=== PATIENT | male | born 1965 | race Hispanic/Latino ===

== ENCOUNTER 2016-08-29 13:08 | Observation (INO) | payer BC ==
[2016-08-29] MEDS ORDERED: Sodium Chloride 0.9% 1,000 ML IV STA (14:00)
[2016-08-29 14:40] LABS: BASO # 0.1 K/uL (0.0-0.2); BASO % 0.3 % (0.0-2.0); EOS # 0.1 K/uL (0.0-0.7); EOS % 0.4 % (0.0-4.0); HEMATOCRIT 47.2 % (35.0-51.0); LYMPH % 5.9 % (20.0-40.0); MEAN CELL VOLUME 81.1 fl (80.0-94.0); MEAN CORPUSCULAR HEMOGLOBIN 26.4 pg (27.0-31.0); MEAN CORPUSCULAR HGB CONC 32.6 g/dL (33.0-37.0); MEAN PLATELET VOLUME 7.2 fl (7.2-11.7); MONO # 0.7 K/uL (0.0-0.8); MONO % 4.4 % (0.0-10.0); NEUT # 14.3 K/uL (1.8-7.0); PLATELET COUNT 192 K/uL (130-400); RED CELL DISTRIBUTION WIDTH 13.3 % (11.5-14.5)
[2016-08-29 14:41] LABS: ALB/GLOB RATIO 1.2 (1.0-2.1); ALKALINE PHOSPHATASE 55 U/L (38-126); ALT/SGPT 66 U/L (21-72); AST/SGOT 43 U/L (17-59); BILIRUBIN,TOTAL 1.1 mg/dl (0.2-1.3); BLOOD UREA NITROGEN 17 mg/dl (9-20); CALCIUM 9.2 mg/dL (8.4-10.2); CARBON DIOXIDE 21 mmol/L (22-30); CHLORIDE 106 mmol/L (98-107); GFR AFRICAN-AMERICAN > 60; GLUCOSE,RANDOM 125 mg/dL (75-110); LIPASE 322 U/L (23-300); POTASSIUM 4.7 MMOL/L (3.6-5.0); SODIUM 140 mmol/l (132-148); TOTAL PROTEIN 7.9 G/DL (6.3-8.2)
--- NOTE | 2016-08-29 15:07 | ED PDOC ---
HPI: General Adult Time Seen by Provider: 08/29/16 13:41 Chief Complaint (Nursing): Abdominal Pain History Per: Patient History/Exam Limitations: no limitations Additional Complaint(s): 51-year-old male, presents to the emergency department with complaints of abdominal pain. Patient states he has been experiencing epigastric abdominal pain that started at 01:30 this morning. Pain is persistent in nature, and non- radiating. Associated symptoms include nausea, non-bloody/non-bilious vomiting ( x12) and non-bloody/watery diarrhea (x35), resulting in him coming to the ED for evaluation. No back pain, dizziness, incontinence, headaches, fevers, recent travel, chills, shortness of breath or chest pain. No other complaints at this time. Past Medical History Reviewed: Historical Data, Nursing Documentation, Vital Signs Vital Signs: Last Vital Signs Temp 100.0 F H 08/29/16 16:15 Pulse 81 08/29/16 16:15 Resp 16 08/29/16 16:15 BP 144/70 08/29/16 16:15 Pulse Ox 95 08/29/16 16:15 - Medical History PMH: Pancreatitis - Family History Family History: States: Unknown Family Hx - Home Medications Home Medications: Ambulatory Orders Medication Instructions Recorded No Known Home Med 08/29/16 - Allergies Allergies/Adverse Reactions: Allergies Allergy/AdvReac Type Severity Reaction Status Date / Time iodine Allergy RASH Verified 08/29/16 13:34 shellfish derived Allergy RASH Verified 08/29/16 13:34 Review of Systems ROS Statement: Except As Marked, All Systems Reviewed And Found Negative Constitutional: Negative for: Fever, Chills Cardiovascular: Negative for: Chest Pain, Palpitations Gastrointestinal: Positive for: Abdominal Pain, Diarrhea. Negative for: Nausea , Vomiting, Hematochezia Musculoskeletal: Negative for: Back Pain Skin: Negative for: Rash Neurological: Negative for: Weakness, Numbness, Headache, Dizziness Physical Exam - Reviewed Nursing Documentation Reviewed: Yes Vital Signs Reviewed: Yes - Physical Exam Appears: Positive for: Non-toxic, No Acute Distress Head Exam: Positive for: ATRAUMATIC, NORMOCEPHALIC Skin: Positive for: Warm, Dry. Negative for: Rash Eye Exam: Positive for: Normal appearance Neck: Positive for: Painless ROM Cardiovascular/Chest: Positive for: Regular Rate, Rhythm Respiratory: Positive for: Normal Breath Sounds. Negative for: Accessory Muscle Use Gastrointestinal/Abdominal: Positive for: Bowel Sounds (Hypoactive), Soft. Negative for: Tenderness Extremity: Positive for: Normal ROM Neurologic/Psych: Positive for: Alert, Oriented - Laboratory Results Result Diagrams: 08/29/16 14:17 08/29/16 14:17 - ECG O2 Sat by Pulse Oximetry: 99 Medical Decision Making Medical Decision Making: Plan * CT Abd/Pel * EKG * CMP, Lipase * CBC * IVF * Stool Culture * Reassess and Disposition * Pt comfortable. Discussed with Dr. Sullivan. Scribe Attestation: Documented by Tianna Eason, acting as a scribe for NATHALIA Fisher. Provider Scribe Attestation: All medical record entries made by the Scribe were at my direction and personally dictated by me. I have reviewed the chart and agree that the record accurately reflects my personal performance of the history, physical exam, medical decision making, and the department course for this patient. I have also personally directed, reviewed, and agree with the discharge instructions and disposition. Disposition - Clinical Impression Clinical Impression: Abdominal pain - Patient ED Disposition Is Patient to be Admitted: Yes - Disposition Disposition Time: 18:59 Condition: STABLE - Pt Status Changed To: Hospital Disposition Of: Observation - Admit Certification Admit to Inpatient:: M/S - POA Present On Arrival: None
--- NOTE | 2016-08-29 16:07 | CT ---
PROCEDURE: CT Abdomen and Pelvis without intravenous contrast HISTORY: epigastric pain COMPARISON: 06/05/2015 TECHNIQUE: Without contrast.. Contrast Dose: 0 Radiation dose: Total exam DLP = 1043.99 mGy-cm. This CT exam was performed using one or more of the following dose reduction techniques: Automated exposure control, adjustment of the mA and/or kV according to patient size, and/or use of iterative reconstruction technique. FINDINGS: LOWER THORAX: Unremarkable. LIVER: Mild hepatomegaly. The liver measures 20 cm craniocaudal. Smooth contour. No mass. No biliary ductal dilatation. GALLBLADDER AND BILE DUCTS: No calcified gallstones. No mural thickening. No pericholecystic fluid. PANCREAS: Unremarkable. No gross lesion or ductal dilatation. No peripancreatic fluid. SPLEEN: Unremarkable. ADRENALS: Unremarkable. No mass. KIDNEYS AND URETERS: Unremarkable. No hydronephrosis. No solid mass. No urinary calculus. VASCULATURE: Unremarkable. No aortic aneurysmNo urinary or ureteral. BOWEL: Sigmoid diverticulosis without evidence of diverticulitis. Scattered diverticulae elsewhere. No bowel obstruction. No other abnormal bowel loops. APPENDIX: Unremarkable. Normal appendix. PERITONEUM: No gross abnormality. LYMPH NODES: Unremarkable. No enlarged lymph nodes. BLADDER: Poorly distended. REPRODUCTIVE: Unremarkable prostate BONES: Minimal anterior wedge compression deformity of the T11 vertebra unchanged from examination of 06/05/2015. OTHER FINDINGS: None. IMPRESSION: No acute abnormality. Mild hepatomegaly. No evidence of pancreatitis. Sigmoid diverticulosis. No evidence of diverticulitis.
[2016-08-29 16:14] LABS: BASOPHIL 1 % (0-2); EOSINOPHIL 2 % (0-7); NEUTROPHIL 87 % (42-75); TOTAL CELLS COUNTED 100
[2016-08-29] MEDS ORDERED: Dextrose 5%/0.9% NS 1,000 ML IV SCH (17:00)
--- NOTE | 2016-08-29 17:41 | RAD ---
HISTORY: admission COMPARISON: Chest x-ray performed 10/28/15 TECHNIQUE: Chest PA and lateral FINDINGS: Examination limited by habitus. LUNGS: No focal consolidation. Please note that chest x-ray has limited sensitivity for the detection of pulmonary masses. PLEURA: No significant pleural effusion identified. No definite pneumothorax . CARDIOVASCULAR: The cardiomediastinal silhouette appears within normal limits of size. OSSEOUS STRUCTURES: Degenerative changes of the spine. VISUALIZED UPPER ABDOMEN: Mild elevation of the right hemidiaphragm. OTHER FINDINGS: None. IMPRESSION: No focal consolidation, significant pleural effusion, or definite pneumothorax identified.
--- NOTE | 2016-08-29 18:41 | CP.PCM.HP ---
History of Present Illness - History of Present Illness History of Present Illness: %1 old gentleman presented in ER with epigastric pain, abdominal pain and diarrhea, general malaise, N/V. Hx of previous pancreatitis. The WBC elevated and fever. Present on Admission - Present on Admission Any Indicators Present on Admission: No Review of Systems - Constitutional Constitutional: As Per HPI - EENT Eyes: As Per HPI Nose/Mouth/Throat: As Per HPI - Cardiovascular Cardiovascular: As Per HPI - Gastrointestinal Gastrointestinal: Abdominal Pain, Diarrhea, Nausea, Vomiting - Musculoskeletal Musculoskeletal: As Per HPI - Integumentary Integumentary: As Per HPI - Neurological Neurological: As Per HPI - Psychiatric Psychiatric: As Per HPI Past Patient History - Past Social History Smoking Status: Current Some Days Smoker - GASTROINTESTINAL Hx Pancreatitis: Yes - PSYCHIATRIC Hx Substance Use: No - SURGICAL HISTORY Hx Surgeries: No Meds Allergies/Adverse Reactions: Allergies Allergy/AdvReac Type Severity Reaction Status Date / Time iodine Allergy RASH Verified 08/29/16 13:34 shellfish derived Allergy RASH Verified 08/29/16 13:34 Physical Exam - Constitutional Appears: Non-toxic - Head Exam Head Exam: ATRAUMATIC, NORMAL INSPECTION, NORMOCEPHALIC - Eye Exam Eye Exam: EOMI, Normal appearance, PERRL Pupil Exam: NORMAL ACCOMODATION - ENT Exam ENT Exam: Mucous Membranes Moist, Normal Exam - Neck Exam Neck exam: Positive for: Normal Inspection - Respiratory Exam Respiratory Exam: Clear to Auscultation Bilateral - Cardiovascular Exam Cardiovascular Exam: REGULAR RHYTHM, +S1, +S2 - GI/Abdominal Exam Additional comments: no tender no rebound - Extremities Exam Extremities exam: Positive for: normal inspection Results - Vital Signs Recent Vital Signs: Last Vital Signs Temp 100.0 F H 08/29/16 16:15 Pulse 81 08/29/16 16:15 Resp 16 08/29/16 16:15 BP 144/70 08/29/16 16:15 Pulse Ox 95 08/29/16 16:15 - Labs Result Diagrams: 08/29/16 14:17 08/29/16 14:17 Assessment & Plan (1) Abdominal pain Status: Acute (2) Pancreatitis Status: Acute (3) Sepsis Status: Suspected - Assessment and Plan (Free Text) Plan: As per orders
--- NOTE | 2016-08-29 19:44 | CON ---
DATE: 08/29/2016 The patient is a 51-year-old man who was admitted via the ER with severe epigastric pain, abdominal p ain, and diarrhea. The patient states that he went to eat scrambled eggs at a diner in [place], and within 2 hours developed fever, chills, and nonstopping diarrhea. Had a bout of diarrhea when I was in the room with him, and it was markedly watery. The patient has a past medical history of pancreatitis. He is alert, cooperative, and oriented to time and place. NECK: Supple. LUNGS: Some crackles at both bases. HEART: Regular sinus rhythm. ABDOMEN: Distended, hyperactive bowel sounds, and has some tenderness in the epigastric and right lo wer quadrant, but nothing too severe. EXTREMITIES: No CCE. LABORATORIES: Show a WBC of 16, hemoglobin 15.4, platelet count 192, with 89 polys, and 5.9 lymphs. No bands. Chemistries show a creatinine of 0.8, GFR greater than 60, random glucose 125, bilirubin 1.1. AST 43, ALT 66, and his lipase is 33 22. CHEST X-RAY: No focal consolidation. Significant pleural effusion or definite pneumothorax is ident ified. Abdominal pelvic CT: No acute abnormality, mild hepatomegaly. No evidence of pancreatitis. Sigmoid diverticulosis, and no evidence of diverticulitis At this point, blood and urine cultures have been ordered. Stool cultures ordered. Stool for C. dif ficile has also been ordered. I have started him on doxycycline 100 mg IV piggyback q. 12, and Flagyl 500 mg IV piggyback q. 8, and also Bacid was ordered. IMPRESSION: Rule out gastroenteritis secondary to food poisoning, rule out routine viral gastroenter itis, pancreatitis. Will await cultures and decide if further treatment. Mich Ferro MD cc: 61 TT: 08/29/2016 19:43:46 Confirmation # [id number] Dictation # [id number] jose
--- NOTE | 2016-08-29 20:05 | CARD ---
APPROVED REPORT EKG Measurement Heart [id number] <Conclusion> Normal sinus rhythm Normal ECG
[2016-08-29 20:28] LABS: PROSTATE SPECIFIC ANTIGEN 0.203 ng/ML (0.00-4.0)
[2016-08-29] MEDS: Enoxaparin 40 mg Syringe SC SCH (20:41)
[2016-08-30] MEDS: metroNIDAZOLE 500mg/100ml NS 100 ML IVPB SCH ×2 (01:19→10:48)
[2016-08-30 07:34] LABS: BASO % 0.4 % (0.0-2.0); EOS # 0.2 K/uL (0.0-0.7); EOS % 2.2 % (0.0-4.0); HEMATOCRIT 41.5 % (35.0-51.0); LYMPH # 2.2 K/uL (1.0-4.3); LYMPH % 26.5 % (20.0-40.0); MEAN CELL VOLUME 80.9 fl (80.0-94.0); MEAN CORPUSCULAR HGB CONC 33.4 g/dL (33.0-37.0); MEAN PLATELET VOLUME 7.5 fl (7.2-11.7); MONO # 0.8 K/uL (0.0-0.8); MONO % 9.7 % (0.0-10.0); NEUT # 5.1 K/uL (1.8-7.0); NEUT % 61.2 % (50.0-75.0); NRBC % 0.1 % (0.0-0.0); RED CELL DISTRIBUTION WIDTH 13.4 % (11.5-14.5); WHITE BLOOD COUNT 8.3 K/uL (4.8-10.8)
[2016-08-30 07:39] LABS: RBC URINE 4 /hpf (0-3); URINE BILIRUBIN NEGATIVE (NEGATIVE); URINE BLOOD NEGATIVE (NEGATIVE); URINE COLOR YELLOW (YELLOW); URINE GLUCOSE (UA) NEG (Normal); URINE KETONE NEGATIVE (NEGATIVE); URINE LEUKOCYTE ESTERASE NEG Leu/uL (Negative); URINE PROTEIN 30 mg/dL (NEGATIVE); URINE UROBILINOGEN 0.2-1.0 mg/dL (0.2-1.0); WBC URINE < 1 /hpf (0-5)
[2016-08-30 07:43] VITALS: BP 122/68; PULSE 64; RESP 18; TEMP 98.6; O2SAT 96
[2016-08-30 07:51] LABS: ALB/GLOB RATIO 1.1 (1.0-2.1); ALKALINE PHOSPHATASE 44 U/L (38-126); ALT/SGPT 51 U/L (21-72); AMYLASE 79 U/L (30-110); AST/SGOT 32 U/L (17-59); BILIRUBIN,TOTAL 0.9 mg/dl (0.2-1.3); BLOOD UREA NITROGEN 14 mg/dl (9-20); CALCIUM 8.2 mg/dL (8.4-10.2); CARBON DIOXIDE 26 mmol/L (22-30); CHLORIDE 107 mmol/L (98-107); GFR AFRICAN-AMERICAN > 60; GLUCOSE,RANDOM 111 mg/dL (75-110); POTASSIUM 4.2 MMOL/L (3.6-5.0); SODIUM 143 mmol/l (132-148); TOTAL PROTEIN 6.4 G/DL (6.3-8.2)
[2016-08-30] MEDS: Enoxaparin 40 mg Syringe SC SCH (09:07)
[2016-08-30] MEDS ORDERED: Lactobacillus Acidophilus 500 MU Cap PO SCH (11:54)
--- NOTE | 2016-08-30 12:15 | CP.PCM.PN ---
Subjective - Date & Time of Evaluation Date of Evaluation: 08/30/16 Time of Evaluation: 12:14 - Subjective Subjective: Comfortable no abd pain no n/v no cp no diarrhea Objective - Vital Signs/Intake and Output Vital Signs (last 24 hours): Temp Pulse Resp BP Pulse Ox 98.6 F 64 18 122/68 96 08/30/16 09:00 08/30/16 07:42 08/30/16 07:42 08/30/16 07:42 08/30/16 07:42 - Medications Medications: Current Medications Acetaminophen (Tylenol 325mg Tab) 650 mg PO Q6 PRN PRN Reason: Fever >100.4 F Last Admin: 08/29/16 20:05 Dose: 650 mg Enoxaparin Sodium (Lovenox) 40 mg SC DAILY COUNT INCLUDES THE [facility] PRN Reason: Protocol Last Admin: 08/30/16 09:07 Dose: Not Given Dextrose/Sodium Chloride (Dextrose 5%/0.9% Ns 1000 Ml) 1,000 mls @ 85 mls/hr IV .[id number] COUNT INCLUDES THE [facility] Stop: 08/30/16 17:01 Ceftriaxone Sodium 1 gm/ (Sodium Chloride) 100 mls @ 100 mls/hr IVPB DAILY COUNT INCLUDES THE [facility] Last Admin: 08/30/16 09:07 Dose: 100 mls/hr Metronidazole (Flagyl 500mg/100ml Ns) 100 mls @ 100 mls/hr IVPB Q8 COUNT INCLUDES THE [facility] Last Admin: 08/30/16 10:48 Dose: 100 mls/hr Doxycycline Hyclate 100 mg/ (Sodium Chloride) 100 mls @ 100 mls/hr IVPB Q12 COUNT INCLUDES THE [facility] Last Admin: 08/29/16 21:53 Dose: 100 mls/hr Lactobacillus Acidophilus (Bacid Acidophilus) 1 cap PO BID COUNT INCLUDES THE [facility] Pantoprazole Sodium (Protonix Inj) 40 mg IVP DAILY COUNT INCLUDES THE [facility] Last Admin: 08/30/16 09:07 Dose: 40 mg - Labs Labs: 08/30/16 06:50 08/30/16 06:50 - Constitutional Appears: Well - Head Exam Head Exam: ATRAUMATIC, NORMAL INSPECTION, NORMOCEPHALIC - Eye Exam Eye Exam: Normal appearance - ENT Exam ENT Exam: Mucous Membranes Moist - Neck Exam Neck Exam: Full ROM - Respiratory Exam Respiratory Exam: Clear to Ausculation Bilateral - Cardiovascular Exam Cardiovascular Exam: REGULAR RHYTHM, +S1, +S2 - GI/Abdominal Exam GI & Abdominal Exam: Soft, Normal Bowel Sounds - Extremities Exam Extremities Exam: Normal Inspection - Neurological Exam Neurological Exam: Alert, Awake, CN II-XII Intact, Normal Gait, Oriented x3 - Psychiatric Exam Psychiatric exam: Normal Affect - Skin Skin Exam: Normal Color Assessment and Plan (1) Abdominal pain Status: Resolved (2) Pancreatitis Status: Resolved (3) Sepsis Status: Ruled-out - Assessment and Plan (Free Text) Plan: Continue PO meds DC home.
== END 2016-08-30 12:29 | disposition home or self-care (01) ==
LOC: H.ER 13:08 → H.ERHOLD 16:06 → H.MEDSURG1 17:41
PROVIDERS: ADMIT Internal Medicine; ATTEND Internal Medicine
DX: K85.90 Acute pancreatitis without necrosis or infection, unspecified (principal); F17.210 Nicotine dependence, cigarettes, uncomplicated; Z91.041 Radiographic dye allergy status; Z91.013 Allergy to seafood
CPT/HCPCS: 36415; 71020; 74176; 80053; 80061; 80074; 81003; 82150; 82607; 82746; 83690; 84153; 84443; 85025; 87040; 87045; 87177; 87209; 87230; 93005; 99283; C9113; G0328; G0378; J0696; J7040

== ENCOUNTER 2018-04-24 23:05 | Emergency (ER) | payer BC ==
--- NOTE | 2018-04-24 23:54 | ED PDOC ---
Hyperglycemia/Hypoglycemia Time Seen by Provider: 04/24/18 23:37 Chief Complaint (Nursing): High Blood Sugar Chief Complaint (Provider): High Blood Sugar History Per: Patient History/Exam Limitations: no limitations Onset/Duration Of Symptoms: Hrs ([employer]) Causative (Exacerbating) Factor(s): Recent Change In Diet : The patient does not have any of the infectious symptoms listed except for those marked. Treatment Prior To Provider Evaluation: Accucheck (506) Additional Complaint(s): 53 y/o male with recent diagnosis of fatty liver presents to the ED for evaluation of high blood sugar, onset prior to arrival. Patient reports that he started a new diet and believes that this could be the reason for the high reading. He denies any nausea, vomiting, diarrhea. Patient reports he feels healthy and has no additional medical problems. PMD: Richard Sullivan Past Medical History Reviewed: Historical Data, Nursing Documentation, Vital Signs Vital Signs: Last Vital Signs Temp 98.0 F 04/24/18 23:21 Pulse 81 04/24/18 23:21 Resp 16 04/24/18 23:21 BP 162/91 H 04/24/18 23:21 Pulse Ox 96 04/24/18 23:21 - Medical History PMH: Pancreatitis - Surgical History Surgical History: No Surg Hx - Family History Family History: States: Unknown Family Hx - Home Medications Home Medications: Ambulatory Orders Medication Instructions Recorded metFORMIN [glucOPHAGE] 500 mg PO BID #60 tab 04/25/18 - Allergies Allergies/Adverse Reactions: Allergies Allergy/AdvReac Type Severity Reaction Status Date / Time iodine Allergy RASH Verified 08/29/16 13:34 shellfish derived Allergy RASH Verified 08/29/16 13:34 Review of Systems ROS Statement: Except As Marked, All Systems Reviewed And Found Negative Constitutional: Negative for: Fever ENT: Positive for: Nose Congestion (mild) Gastrointestinal: Negative for: Nausea, Vomiting, Diarrhea Neurological: Positive for: Headache (mild) Physical Exam - Reviewed Nursing Documentation Reviewed: Yes Vital Signs Reviewed: Yes - Physical Exam Appears: Positive for: Non-toxic, No Acute Distress Head Exam: Positive for: ATRAUMATIC, NORMOCEPHALIC Skin: Positive for: Normal Color, Warm, Dry Eye Exam: Positive for: EOMI, Normal appearance, PERRL ENT: Positive for: Normal ENT Inspection Neck: Positive for: Normal, Painless ROM, Supple Cardiovascular/Chest: Positive for: Regular Rate, Rhythm Respiratory: Negative for: Respiratory Distress Pulses-Radial (R): 2+ Extremity: Positive for: Normal ROM. Negative for: Pedal Edema, Deformity Neurologic/Psych: Positive for: Alert, Oriented, Gait (steady). Negative for: Motor/Sensory Deficits - Laboratory Results Result Diagrams: 04/25/18 00:15 04/25/18 00:15 - ECG O2 Sat by Pulse Oximetry: 96 (RA) Pulse Ox Interpretation: Normal - Progress Re-evaluation Time: :22 Condition: Re-examined, Improved Medical Decision Making Medical Decision Making: Time: 00:02 Initial Impression: Hyperglycemia Differential includes diabetes r/o DKA Initial Plan: * CMP * Hemoglobin A1C * Dipstick * CBC w/ diff * IV Fluids * UA Scribe Attestation: Documented by Luis Monge acting as a scribe for Jan Lester MD. Provider Scribe Attestation: All medical record entries made by the Scribe were at my direction and personally dictated by me. I have reviewed the chart and agree that the record accurately reflects my personal performance of the history, physical exam, medical decision making, and the department course for this patient. I have also personally directed, reviewed, and agree with the discharge instructions and disposition. Disposition - Clinical Impression Clinical Impression: Hyperglycemia - Patient ED Disposition Is Patient to be Admitted: No Doctor Will See Patient In The: Office Counseled Patient/Family Regarding: Studies Performed, Diagnosis, Need For Followup - Disposition Referrals: Richard Sullivan MD [Staff Provider] - Disposition: Routine/Home Disposition Time: :22 Condition: GOOD Additional Instructions: LUKE TELLEZ, thank you for letting us take care of you today. Your provider was Jan Lester MD and you were treated for HIGH BLOOD SUGAR. The emergency medical care you received today was directed at your acute symptoms. If you were prescribed any medication, please fill it and take as directed. It may take several days for your symptoms to resolve. Return to the Emergency Department if your symptoms worsen, do not improve, or if you have any other problems. Please contact your doctor or call one of the physicians/clinics you have been referred to that are listed on the Patient Visit Information form that is included in your discharge packet. Bring any paperwork you were given at discharge with you along with any medications you are taking to your follow up visit. Our treatment cannot replace ongoing medical care by a primary care provider outside of the emergency department. Thank you for allowing the [facility] team to be part of your care today. If you had an X-Ray or CT scan: A Radiologist will review the ED reading if any change in treatment is needed we will contact you. If you had a blood, urine, or wound culture: It will take several days for the results, if any change in treatment is needed we will contact you. If you had an STI test: It will take 48 hours for the results. Please call after 1 week if you have not heard back. Prescriptions: metFORMIN [glucOPHAGE] 500 mg PO BID #60 tab Instructions: Hyperglycemia, Adult
[2018-04-25] MEDS: Sodium Chloride 0.9% 1,000 ML IV STA (00:19)
[2018-04-25 00:41] LABS: BASO # 0.1 K/uL (0.0-0.2); BASO % 0.8 % (0.0-2.0); EOS # 0.1 K/uL (0.0-0.7); EOS % 1.5 % (0.0-4.0); HEMOGLOBIN 14.1 g/dL (12.0-18.0); LYMPH # 4.3 K/uL (1.0-4.3); MEAN CORPUSCULAR HEMOGLOBIN 28.1 pg (27.0-31.0); MEAN CORPUSCULAR HGB CONC 34.2 g/dL (33.0-37.0); MEAN PLATELET VOLUME 7.5 fl (7.2-11.7); MONO # 0.5 K/uL (0.0-0.8); MONO % 6.1 % (0.0-10.0); NEUT # 3.4 K/uL (1.8-7.0); NEUT % 40.6 % (50.0-75.0); NRBC % 0.2 % (0.0-0.0); RBC 5.03 Mil/uL (4.40-5.90); RED CELL DISTRIBUTION WIDTH 12.9 % (11.5-14.5); WHITE BLOOD COUNT 8.4 K/uL (4.8-10.8)
[2018-04-25 00:46] LABS: URINE BILIRUBIN NEGATIVE (NEGATIVE); URINE BLOOD SMALL (NEGATIVE); URINE CLARITY CLEAR (Clear); URINE COLOR STRAW (YELLOW); URINE GLUCOSE (UA) >=500 mg/dL (NEGATIVE); URINE LEUKOCYTE ESTERASE NEG Leu/uL (Negative); URINE PROTEIN 30 mg/dL (NEGATIVE); URINE UROBILINOGEN 0.2-1.0 mg/dL (0.2-1.0)
[2018-04-25 00:53] LABS: ALB/GLOB RATIO 1.2 (1.0-2.1); ALT/SGPT 137 U/L (21-72); AST/SGOT 88 U/L (17-59); BLOOD UREA NITROGEN 19 mg/dl (9-20); GFR NON-AFRICAN AMERICAN > 60
[2018-04-25] MEDS: Insulin Regular 100 units/ml IV STA (01:04)
[2018-04-25] MEDS: Potassium Chloride 20 mEq ER Tab PO ONE (01:40)
[2018-04-25 02:43] VITALS: BP 148/85; PULSE 71; RESP 14; TEMP 98.2; O2SAT 97
== END 2018-04-25 02:40 | disposition home or self-care (01) ==
LOC: H.ER 23:05
DX: E11.65 Type 2 diabetes mellitus with hyperglycemia (principal); Z79.84 Long term (current) use of oral hypoglycemic drugs; K85.90 Acute pancreatitis without necrosis or infection, unspecified
CPT/HCPCS: 80053; 81003; 82948; 83036; 85025; 96360; 99284; J7030